=== PATIENT | male | born 1985 | race Caucasian/White ===

== ENCOUNTER 2020-07-24 14:26 | Emergency (ER) | payer OTHER, BC, SELFPAY ==
[2020-07-24 14:32] VITALS: BP 141/71; PULSE 63; RESP 16; TEMP 36.6; O2SAT 96
[2020-07-24] MEDS: Tetracaine 0.5% 4 ML BTL (14:50)
[2020-07-24] MEDS: Balanced Salt Solution 15 ML BTL (14:50)
--- NOTE | 2020-07-24 15:04 | ED.GENADUL_ITS ---
Discharge Plan Disposition Patient Disposition: HOME Condition: Stable Discharge Details Clinical Impression: Corneal abrasion, left Primary Care Provider: Andreea,Local ED Provider: Linus Martinez Home Meds and New Rx's Prescriptions: New erythromycin 5 mg/gram (0.5 %) ointment 0.5 inch ophthalmic (eye) QID Qty: 3.5 RF: 0 Continued budesonide-formoterol [Symbicort] 80-4.5 mcg/actuation HFA aerosol inhaler 1 puff INHALATION DAILY RF: 0 Discharge Instructions Instructions: Erythromycin (Into the eye), Corneal Abrasion (ED) Additional Instructions: Please apply 0.5 inch ribbon to left eye conjunctive, 3 times a day for the next 1 week. Please follow-up with eye care associate. Return to the ER for any worsening or new concerning symptoms. Referrals: [facility] [Outside] Discharge Data Discharge Date/Time-TO BE ENTERED AT DEPARTURE: 07/24/20 15:15 Medical Decision Making 35-year-old male here with sensation of foreign body in his left eye after getting sand in his eye. No visual changes. Visual acuity is normal. Lids everted and no foreign body present. I examined with fluorescein under Singh lamp and corneal abrasion noted. Patient was given tetracaine and sensation completely resolved. Patient started on erythromycin ointment and advised to follow-up with eye care associate on Sunday. Usual customary discharge instructions reviewed with the patient. HPI General Mode of arrival: ambulatory . Date/Time Provider Initiated Documentation: 07/24/20 14:40 . Limitations to Documentation: no limitations . Information obtained by: patient . HPI Narrative: 35-year-old male presents with chief complaint of left eye irritation. Patient notes he was working with sand and some sand blew into his face. This occurred just prior to arrival. He did try to flush his eye but has continued sensation of foreign body. No visual changes. Patient does not wear contacts. Tetanus up-to-date. Related Data Home Medications Medication Instructions Recorded Confirmed budesonide-formoterol [Symbicort] 1 puff INHALATION DAILY 07/24/20 07/24/20 erythromycin 0.5 inch OPHTHALMIC (EYE) QID #3.5 07/24/20 g Previous Rx's Medication Instructions Recorded erythromycin 0.5 inch OPHTHALMIC (EYE) QID #3.5 07/24/20 g Allergies Allergy/AdvReac Type Severity Reaction Status Date / Time nuts Allergy Severe Anaphylaxsi Uncoded 07/24/20 14:35 s shell fish Allergy Severe Anaphylaxsi Uncoded 07/24/20 14:35 s General Stated Complaint: EyeProblem CARLOS: 4 Review of Systems All systems reviewed & are unremarkable except as noted in HPI and below Constitutional Constitutional: Denies fever(s) Eyes Eyes: Denies blurry vision PFSH Social History Smoking/Tobacco Use Status: Never Substance use type: does not use Exam Const General: cooperative and no acute distress HENMT Mouth: moist mucous membranes Eyes Conjunctivae: conjunctivae normal Sclera: normal sclerae Cornea: corneas abnormal on the left fluorescein used and abrasion curved and at the following clock position (8-12); without ulcerations and other (Negative John sign) Pupils: PERRL EOM: EOM intact bilaterally Course Vital Signs Vital signs: Vital Signs Temperature 36.6 C 07/24/20 14:32 Pulse 63 07/24/20 14:32 Respiratory Rate 16 07/24/20 14:32 Blood Pressure 141/71 H 07/24/20 14:32 Pulse Oximetry 96 07/24/20 14:32 Temperature 36.6 C 07/24/20 14:32 Temperature Source Skin 07/24/20 14:32 Pulse 63 07/24/20 14:32 Respiratory Rate 16 07/24/20 14:32 Respiratory Effort Non-Labored 07/24/20 14:32 Blood Pressure 141/71 H 07/24/20 14:32 Blood Pressure Position Sitting 07/24/20 14:32 Pulse Oximetry 96 07/24/20 14:32 Oxygen Delivery Method Room Air 07/24/20 14:32 Oxygen Flow Rate 0 07/24/20 14:32 Pain Level 2 07/24/20 14:32
[2020-07-24] MEDS: Erythromycin Ophth Oint 3.5 GM TUBE OS (15:05)
[2020-07-24] MEDS: Fluorescein STRIPS 100/BOX 1 MG (15:30)
== END 2020-07-24 15:15 | disposition home or self-care (01) ==
PROVIDERS: Emergency Provider Student in an Organized Health Care Education/Training Program
DX: S05.02XA Injury of conjunctiva and corneal abrasion without foreign body, left eye, initial encounter (principal); X58.XXXA Exposure to other specified factors, initial encounter
CPT/HCPCS: 99283